=== PATIENT | female | born 1995 ===

== ENCOUNTER 2021-12-09 10:27 | Outpatient (CLI) | payer OTHER | END 2021-12-09 12:26 | disposition home or self-care (01) | LOC: PRENATAL 10:27 | PROVIDERS: ATTEND Obstetrics & Gynecology Maternal & Fetal Medicine | DX: O99.891 Other specified diseases and conditions complicating pregnancy (principal); Z36.0 Encounter for antenatal screening for chromosomal anomalies; Z3A.17 17 weeks gestation of pregnancy ==

== ENCOUNTER 2022-01-03 12:37 | Outpatient (CLI) | payer OTHER | END 2022-01-03 14:25 | disposition home or self-care (01) | LOC: PRENATAL 12:37 | PROVIDERS: ATTEND Obstetrics & Gynecology Maternal & Fetal Medicine | DX: O35.0XX0 Maternal care for (suspected) central nervous system malformation in fetus, not applicable or unspecified (principal); O35.3XX0 Maternal care for (suspected) damage to fetus from viral disease in mother, not applicable or unspecified; O99.280 Endocrine, nutritional and metabolic diseases complicating pregnancy, unspecified trimester; O34.10 Maternal care for benign tumor of corpus uteri, unspecified trimester; Z3A.21 21 weeks gestation of pregnancy ==

== ENCOUNTER 2022-03-24 10:34 | Outpatient (CLI) | payer OTHER | END 2022-03-24 11:35 | disposition home or self-care (01) | LOC: PRENATAL 10:34 | PROVIDERS: ATTEND Obstetrics & Gynecology Maternal & Fetal Medicine | DX: O26.849 Uterine size-date discrepancy, unspecified trimester (principal); O35.0XX0 Maternal care for (suspected) central nervous system malformation in fetus, not applicable or unspecified; O99.280 Endocrine, nutritional and metabolic diseases complicating pregnancy, unspecified trimester; O34.10 Maternal care for benign tumor of corpus uteri, unspecified trimester; Z3A.32 32 weeks gestation of pregnancy ==

== ENCOUNTER 2022-05-14 06:07 | Inpatient (IN) | payer OTHER ==
[~2022-05-14] VITALS: Ht 167.6 cm; Wt 83.9 kg
[2022-05-14] MEDS ORDERED: PRENATAL CAPLE1 EAC1 PO (07:52)
[2022-05-14] MEDS ORDERED: SYNTHROID175 MCG PO (07:52)
== END 2022-05-16 14:12 | disposition home or self-care (01) | DRG 807 ==
LOC: OB/GYN 06:07 → LDR 06:07 → OB/GYN 20:14
PROVIDERS: ADMIT Obstetrics & Gynecology; ATTEND Obstetrics & Gynecology
PROC: 10E0XZZ Delivery of Products of Conception, External Approach (ICD-10-PCS; principal; 2022-05-14)
PROC: 0W8NXZZ Division of Female Perineum, External Approach (ICD-10-PCS; 2022-05-14)
PROC: 4A1HXCZ Monitoring of Products of Conception, Cardiac Rate, External Approach (ICD-10-PCS; 2022-05-14)
DX: O80 Encounter for full-term uncomplicated delivery (principal); Z37.0 Single live birth; Z3A.39 39 weeks gestation of pregnancy; Z20.822 Contact with and (suspected) exposure to COVID-19

== ENCOUNTER 2023-08-13 08:52 | Outpatient (CLI) | payer OTHER ==
[~2023-08-13 08:52] MED LIST: PRENATAL CAPLE1 EAC1 PO; SYNTHROID175 MCG PO
== END 2023-08-13 08:53 | disposition home or self-care (01) ==
LOC: PRENATAL 08:52
PROVIDERS: ATTEND Obstetrics & Gynecology Maternal & Fetal Medicine
DX: Z76.1 Encounter for health supervision and care of foundling (principal)